=== PATIENT | female | born 1990 | race Caucasian/White ===

== ENCOUNTER → 2020-04-14 | Outpatient (CLI) | payer OTHER ==
--- NOTE | 2020-04-15 08:06 | USB ---
Reason for exam: clinical finding. History: Family history of breast cancer in maternal aunt. Indicated problem(s): lump or thickening in the left breast. Physical Findings: Nurse did not find any significant physical abnormalities on exam. US Breast LT Left complete breast ultrasound includes all four quadrants, the retroareolar region and axilla. Finding demonstrates no cystic or solid lesion seen. Attention to the 2 o'clock palpable site. Dense tissues are noted. These results were verbally communicated with the patient and result sheet given to the patient on 04/14/20. ASSESSMENT: Negative, BI-RAD 1 RECOMMENDATION: Routine screening mammogram of both breasts at age 42. (unless clinical indication to start sooner) Manage on a clinical basis with regard to any suspicious palpable area. The patient can be rescanned if any enlarging lump.
== END | disposition home or self-care (01) ==
LOC: RADUSWWP 15:06
PROVIDERS: ATTEND Family Medicine
DX: N63.20 Unspecified lump in the left breast, unspecified quadrant (principal)

== ENCOUNTER 2021-12-30 14:02 | Emergency (ER) | payer OTHER ==
[2021-12-30 14:08] VITALS: RESP 20; TEMP 98.4
[2021-12-30] MEDS ORDERED: KETOROLAC 15 MG/ML 1 ML VIAL IM STA (14:19)
--- NOTE | 2021-12-30 14:26 | ED ---
Lower Extremity Injury HPI - General Chief Complaint: Extremity Injury, Lower Stated Complaint: knee injury Time Seen by Provider: 12/30/21 14:12 Source: patient, RN notes reviewed Mode of arrival: ambulatory Limitations: no limitations - History of Present Illness Initial Comments: This is a 31-year-old female who presents to the emergency department for knee pain. Patient was playing softball last night, and as she went to catch the ball, she ended up running into a fence. Patient states that the pain is more severe in the left knee, however both knees are painful. She has been applying ice and taking Advil with very minor relief. States that walking is very difficult as is bending the left leg. Denies any fevers, chills, sore throat, cough, dyspnea, chest pain, palpitations, abdominal pain, nausea, vomiting, diarrhea, back pain, or headaches. MD Complaint: knee injury Onset/Timin -: days(s) Injury: Knee: Right, Left Type of Injury: blunt Place: street/outdoors Worsens With: weight bearing, movement Context: direct blow Treatments Prior to Arrival: cold therapy, NSAIDS - Related Data Previous Rx's Medication Instructions Recorded Ketorolac [Toradol] 10 mg PO Q6HR PRN #16 tab 12/30/21 Allergies Allergy/AdvReac Type Severity Reaction Status Date / Time No Known Allergies Allergy Verified 12/30/21 14:08 Review of Systems ROS Statement: Those systems with pertinent positive or pertinent negative responses have been documented in the HPI. ROS Other: All systems not noted in ROS Statement are negative. Past Medical History Past Medical History: No Reported History History of Any Multi-Drug Resistant Organisms: None Reported Past Surgical History: No Surgical Hx Reported Past Psychological History: No Psychological Hx Reported Smoking Status: Current every day smoker Past Alcohol Use History: Occasional Past Drug Use History: Marijuana General Exam Limitations: no limitations General appearance: alert, in no apparent distress Head exam: Present: atraumatic, normocephalic, normal inspection Respiratory exam: Present: normal lung sounds bilaterally. Absent: respiratory distress, wheezes, rales, rhonchi, stridor Cardiovascular Exam: Present: regular rate, normal rhythm, normal heart sounds. Absent: systolic murmur, diastolic murmur, rubs, gallop, clicks Extremities exam: Present: other (Ecchymosis, swelling, and tenderness to the left knee. Very limited active range of motion secondary to pain. Minor tenderness to the right knee with full active range of motion.) Neurological exam: Present: alert, oriented X3, CN II-XII intact Psychiatric exam: Present: normal affect, normal mood Skin exam: Present: warm, dry, intact, normal color. Absent: rash Course Vital Signs 12/30/21 12/30/21 14:05 15:57 Temperature 98.4 F Pulse Rate 93 74 Respiratory 20 20 Rate Blood Pressure 143/66 136/84 O2 Sat by Pulse 99 99 Oximetry Medical Decision Making - Medical Decision Making This is a 31-year-old female who presents to the emergency department with knee pain. X-rays of the bilateral knees were obtained, revealing no acute osseous abnormalities such as fractures or dislocations. Patient was given IM Toradol and states that this helped significantly with her pain. Prescription for Toradol was provided, she is instructed to avoid taking this with other mfms-kin-xcdhras anti-inflammatories and to alternate with Tylenol. She was also given crutches. Patient declined a knee immobilizer, advised to purchase an vrrj-rwf-yvwcqlg knee brace if she believes that it would be beneficial. She is also instructed to apply ice for 15-20 minutes every 2-3 hours to help with additional swelling and inflammation. She will follow up with her primary care provider next week to reevaluate her symptoms. Return precautions reviewed in depth, the patient is instructed to return to the emergency department with any new, worsening, or concerning symptoms. Patient verbalized understanding. This case was discussed in detail with the attending ED physician. Presentation, findings, and treatment plan discussed in detail as well. - Radiology Data Radiology results: report reviewed, image reviewed Disposition Clinical Impression: Contusion of knee, left, Contusion of knee, right Disposition: HOME SELF-CARE Instructions (If sedation given, give patient instructions): Knee Sprain (ED), Knee Pain (ED) Additional Instructions: Return to the emergency department with any new, worsening, or concerning symptoms. Take the Toradol with Tylenol for pain relief. Do not take vajj-qzt-hrpbcoa anti-inflammatories with the Toradol. Continue to apply ice for 15-20 minutes every 2-3 hours for additional pain relief. Use the crutches as needed and you may purchase an qqtm-qpo-kxphvyz knee brace for additional stability if you believe that it would be beneficial. Follow up with your primary care provider in 1-2 days. Prescriptions: Ketorolac [Toradol] 10 mg PO Q6HR PRN #16 tab PRN Reason: Pain Is patient prescribed a controlled substance at d/c from ED?: No Referrals: Martha Sorensen MD [STAFF PHYSICIAN] - 1-2 days
--- NOTE | 2021-12-30 15:09 | XR ---
EXAMINATION TYPE: XR knee complete bilateral DATE OF EXAM: 12/30/2021 COMPARISON: NONE HISTORY: Contusion Pain TECHNIQUE: 6 views FINDINGS: There is no fracture nor dislocation. Joint spaces are normal. No sign of knee joint effusi on. IMPRESSION: Negative bilateral knee exam.
[2021-12-30 15:59] VITALS: BP 136/84; PULSE 74
== END 2021-12-30 15:59 | disposition home or self-care (01) ==
LOC: EC 14:02
DX: S80.02XA Contusion of left knee, initial encounter (principal); S80.01XA Contusion of right knee, initial encounter; F17.200 Nicotine dependence, unspecified, uncomplicated; W21.07XA Struck by softball, initial encounter; Y93.02 Activity, running; Y92.410 Unspecified street and highway as the place of occurrence of the external cause
CPT/HCPCS: 73562; 99283; J1885

== ENCOUNTER 2022-11-12 15:07 | Inpatient (IN) | payer OTHER ==
[2022-11-12 15:43] LABS: Appearance,Urine Cloudy (Clear); Bacteria,Urine Rare /hpf; Bilirubin,Urine Negative (Negative); Blood,Urine Negative (Negative); Color,Urine Yellow; Glucose,Urine (UA) Negative (Negative); Ketones,Urine Negative (Negative); Leukocyte Esterase,Urine Small (Negative); Mucus,Urine Rare /hpf; Nitrite,Urine Negative (Negative); PH, Urine 5.5 (5.0-8.0); Protein,Urine Negative (Negative); RBC,Urine 2 /hpf (0-5); Specific Gravity,Urine 1.022 (1.001-1.035); Squamous Epithelial Cell,Urine 22 /hpf (0-4); Urobilinogen,Urine <2.0 mg/dL (<2.0); WBC,Urine 2 /hpf (0-5)
[2022-11-12 15:51] LABS: Basophils % (A) 0 %; Eosinophils # (A) 0.3 k/uL (0-0.7); Eosinophils % (A) 3 %; HCT 34.9 % (34.0-46.0); HGB 12.2 gm/dL (11.4-16.0); Lymphocytes # (A) 1.6 k/uL (1.0-4.8); Lymphocytes % (A) 13 %; MCH 30.5 pg (25.0-35.0); MCV 86.9 fL (80.0-100.0); Mean Platelet Volume 8.7; Monocytes # (A) 0.5 k/uL (0-1.0); Monocytes % (A) 4 %; Neutrophils # (A) 9.7 k/uL (1.3-7.7); Neutrophils % (A) 78 %; Platelet Count 246 k/uL (150-450); RBC 4.02 m/uL (3.80-5.40); RDW 13.4 % (11.5-15.5); WBC 12.4 k/uL (3.8-10.6)
[2022-11-12 16:17] LABS: ALT 19 U/L (4-34); AST 25 U/L (14-36); African American GFR (CKD) >90 (>60 ml/min/1.73 sqM); Blood Urea Nitrogen 11 mg/dL (7-17); LDH 192 U/L (120-246); Non-African American GFR(CKD) >90 (>60 ml/min/1.73 sqM); Uric Acid 5.5 mg/dL (3.7-7.4)
[2022-11-12 17:49] LABS: Creatinine,Urine Random 101.8 mg/dL; Protein/Creatinine Ratio,Urine 0.108
[2022-11-12] MEDS ORDERED: DINOPROSTONE 10 MG INSERT.ER VAGINAL ONE (19:24)
[2022-11-12 21:07] LABS: INR 0.9 (<1.2); Partial Thromboplastin Time 22.7 sec (22.0-30.0); Prothrombin Time 9.3 sec (9.0-12.0)
[2022-11-13] MEDS ORDERED: KETOROLAC 15 MG/ML 1 ML VIAL ONE (00:29)
[2022-11-13] MEDS ORDERED: OXYTOCIN 30 UNITS/500 ML NS BAG IV ONE (00:29)
[2022-11-13] MEDS ORDERED: ONDANSETRON 4 MG/2 ML VIAL ONE (00:29)
[2022-11-13] MEDS ORDERED: MORPHINE SULFATE (PF) 0.3 MG/0.3 ML SYR ONE (00:29)
[2022-11-13] MEDS: LACTATED RINGERS 1,000 ML IV SCH ×6 (02:12→19:37)
[2022-11-13] MEDS ORDERED: LIDOCAINE 0.5% (PF) 5 MG/ML (50 ML SDV) SQ PRN (04:59)
[2022-11-13] MEDS ORDERED: TRANEXAMIC 1,000 MG/100ML-NACL 1,000 MG in EMPTY BAG 1 BAG IV PRN (04:59)
[2022-11-13] MEDS ORDERED: miSOPROStoL 200 MCG TAB PO PRN (04:59)
[2022-11-13] MEDS ORDERED: OXYTOCIN 10 UNIT/ML 1 ML VIAL IM PRN (04:59)
[2022-11-13] MEDS ORDERED: CARBOPROST TROMETHAMINE 250 MCG/ML 1 ML AMP IM PRN (04:59)
[2022-11-13] MEDS ORDERED: TERBUTALINE 1 MG/ML VIAL SQ PRN (04:59)
[2022-11-13] MEDS ORDERED: METHYLERGONOVINE 0.2 MG/ML 1 ML AMP IM PRN (04:59)
[2022-11-13] MEDS ORDERED: OXYTOCIN 30 UNITS/500 ML NS 30 UNIT in SALINE 1 500ML.BAG IV SCH (05:00)
[2022-11-13] MEDS: NALBUPHINE 10 MG/ML (10 ML MDV) IV PRN ×2 (05:30→10:41)
[2022-11-13] MEDS ORDERED: ROPIVACAINE 5 MG/ML 20 ML AMPULE ONE (15:05)
[2022-11-13] MEDS ORDERED: SODIUM CHLORIDE 0.9% 100 ML BAG ONE (15:05)
[2022-11-13] MEDS ORDERED: fentaNYL (PF) 50 MCG/ML 5 ML AMP ONE (15:05)
[2022-11-13] MEDS ORDERED: diphenhydrAMINE 50 MG/ML 1 ML VIAL IVP STA (22:21)
[2022-11-14] MEDS ORDERED: TRANEXAMIC 1,000 MG/100ML-NACL 1,000 MG in EMPTY BAG 1 BAG IV PRN (00:06)
[2022-11-14] MEDS ORDERED: CITRIC ACID-SODIUM CITRATE 15 ML CUP PO ONE (00:06)
[2022-11-14] MEDS ORDERED: AZITHROMYCIN 500 MG in SODIUM CHLORIDE 0.9% 250 ML IVPB STA (00:24)
[2022-11-14] MEDS ORDERED: diphenhydrAMINE 25 MG CAP PO PRN (01:37)
[2022-11-14] MEDS ORDERED: diphenhydrAMINE 50 MG CAP PO PRN (01:37)
[2022-11-14] MEDS ORDERED: diphenhydrAMINE 50 MG/ML 1 ML VIAL IVP PRN ×2 (01:37)
[2022-11-14] MEDS ORDERED: METOCLOPRAMIDE 5 MG/ML 2 ML VIAL IVP PRN (01:37)
[2022-11-14] MEDS ORDERED: CALCIUM GLUCONATE 1 GM/10 ML VIAL IV PRN (01:37)
[2022-11-14] MEDS ORDERED: ONDANSETRON 4 MG/2 ML VIAL IVP PRN (01:37)
[2022-11-14] MEDS ORDERED: NALOXONE 0.4 MG/ML 1 ML VIAL IV PRN ×2 (01:37→06:42)
[2022-11-14] MEDS ORDERED: SIMETHICONE 80 MG CHEWABLE PO PRN (01:37)
[2022-11-14] MEDS ORDERED: ZOLPIDEM 5 MG TAB PO PRN (01:37)
--- NOTE | 2022-11-14 01:37 | P.OP ---
Date of Procedure: 11/14/22 Preoperative Diagnosis: 1. Term IUP at 38 weeks and 1 day 2. Pre-eclampsia with severe features 3. Cervical Swelling 4. Labor Dystocia 5. Maternal Request for Section Postoperative Diagnosis: 1. Term IUP at 38 weeks and 1 day 2. Pre-eclampsia with severe features 3. Cervical Swelling 4. Labor Dystocia 5. Maternal Request for Section 6. Occiput Posterior Presentation 7. Nuchal Cord x2 Procedure(s) Performed: Primary Lower Transverse Section Implants: None Anesthesia: epidural Surgeon: Alee Salamanca Electron Microscopist #1: Michael Ayala Estimated Blood Loss (ml): 850 IV fluids (ml): 600 Urine output (ml): 50 (clear yellow) Pathology: none sent Condition: stable Disposition: floor Indications for Procedure: Ms. Sadler is a 32 year old at 38 weeks and 1 day gestation who was admitted on 11/12 for medical induction of labor for gestational hypertension. Induction was started with cervidil cervical ripening. The following afternoon A ROM was undertaken for clear fluid and oxytocin per protocol was started. The patient received epidural anesthesia per her request. The patient had a Category II tracing with recurrent late decelerations that was improved with position changes, fluid bolus, and decreasing the oxytocin. The heart tracing was once again Category I. She progressed to 6-7 centimeters dilation and cervical swelling was noted at this time. After 2 to 3 hours at the same dilation, the patient was involuntarily pushing and not getting good relief from her epidural. She requested section at this time. The risks, benefits, and alternatives to section were discussed with the patient including risk of bleeding, infection, damage to surrounding structures including bladder/bowel/ureters, and post-operative VTE. The patient understands these risks and desires to proceed with primary section. Operative Findings: Viable male in occiput posterior presentation with nuchal cord x2. Apgars were 9 and 9 and 1 and 5 minutes respectively. Weight was 7 pounds and 0 ounces (3180 grams). Amniotic fluid was colorless at the time of delivery. The uterus, fallopian tubes, and bilateral ovaries were grossly unremarkable. Description of Procedure: The patient was taken to the operating room where spinal anesthesia was found to be adequate. Two grams of Ancef and five hundred milligrams of Azithromycin were given for infection prophylaxis. Vaginal prep was performed prior to the surgery. She was prepared and draped in the dorsal supine position with a leftward tilt. A Pfannenstiel skin incision was made with the scalpel. The incision was carried down to the fascia with a bovie. The fascia was incised and extended laterally with Edmonds scissors. The superior aspect of the fascia was grasped with Mily clamps. The underlying rectus muscle was dissected off bluntly. In a similar fashion, the inferior aspect of the fascia was elevated with Mily clamps and the rectus muscle and pyramidalis were dissected off. Excellent hemostasis was achieved with the bovie. The rectus muscle was in the midline down to the level of the pubic symphysis. Pre- peritoneal fatty tissue was bluntly dissected to expose the peritoneum. The peritoneum was found to be free of adherent bowel and entered sharply with Edmonds scissors. The peritoneal incision was extended superiorly and inferiorly to the bladder reflection with good visualization of the bladder. The bladder blade was inserted and vesicouterine peritoneum was identified. Intraabdominal survey revealed scant, clear peritoneal fluid and the thinned-out lower uterine segment. The bladder blade was repositioned to keep the bladder out of the operative field. The lower uterine segment was incised with a scalpel. Clear amniotic fluid was noted. The uterine incision was extended bluntly with lateral and upward traction. The fetus was in occiput posterior position. The head was elevated out of the pelvis with special attention paid to avoid using the uterine incision as a fulcrum. Two loose nuchal cords were reduced. Gentle fundal pressure was applied once the head was brought into the incision. The was delivered with no difficulty. The mouth and nose were suctioned with a bulb. The cord was clamped and cut. was noted to be spontaneously crying. The infant was handed off to the feather shaper. IV oxytocin was initiated to facilitate uterine contractions. The placenta was delivered intact with manual massage of uterine fundus. The uterus was then exteriorized and the inside of the uterus was gently wiped with a lap sponge to assure complete removal of placental membranes. A small left uterine incision was noted. The uterine incision was closed with a 0-Vicryl suture in a running locked fashion. A second imbricating layer of 0-Polysorb was placed along the incision. The ovaries and tubes were found to be normal. The uterus, tubes, and ovaries were then gently returned to the abdominal cavity. The blood clots and fluid were wiped out of the abdomen and pelvis with moist laparotomy sponges. The pelvis was copiously suction irrigated.The uterine incision was reinspected and excellent hemostasis was noted. The fascial layer was closed with a 0-Vicryl suture. The subcutaneous tissue was reapproximated with 2-0 Plain Gut. The skin was closed with 4-0 Monocryl in a subcuticular fashion. The patient tolerated the procedure well. All the counts were correct times two. The patient was taken to the recovery room in a stable condition.
[2022-11-14] MEDS ORDERED: MAGNESIUM SULFATE GM 6 GM in SODIUM CHLORIDE 0.9% 100 ML IVPB ONE (02:00)
[2022-11-14] MEDS: MAGNESIUM SULFATE-WATER PMX 20 GM in WATER FOR INJECTION 1 500ML.BAG IV SCH ×2 (02:36→11:01)
[2022-11-14] MEDS: KETOROLAC 15 MG/ML 1 ML VIAL IVP SCH ×4 (02:43→20:05)
[2022-11-14] MEDS: ACETAMINOPHEN TAB 500 MG TAB PO SCH ×5 (05:02→23:22)
[2022-11-14] MEDS ORDERED: HYDROmorphone 0.5 MG/0.5 ML SYRINGE IVP PRN (06:42)
[2022-11-14] MEDS: SENNOSIDES-DOCUSATE SODIUM 1 EACH TAB PO SCH ×2 (07:51→20:06)
--- NOTE | 2022-11-14 07:57 | P.HPOB ---
History of Present Illness H&P Date: 11/12/22 Chief Complaint: Elevated blood pressures in office This is a 32 year old at 37 weeks and 6 days with EDC of 11/27/2022 (by 6 week US not consistent with LMP) who was sent over from office with elevated blood pressures 140s/80s-90s. In triage, the patient had labile blood pressures up to 140s systolic. The patient denies headache, visual disturbances, and right upper quadrant pain. has otherwise been uncomplicated. A growth ultrasound at 32 weeks estimated the fetus to be in the 64%ile for gestational age. Maternal work-up: blood type O positive, antibody negative, rubella NON-IMMUNE, VDRL non-reactive, HBsAg negative, HIV negative, gonorrhea negative, chlamydia negative, 1 hour GTT 127, GBS negative. TDap declined. Past Medical History Past Medical History: No Reported History History of Any Multi-Drug Resistant Organisms: None Reported Past Surgical History: No Surgical Hx Reported Past Psychological History: No Psychological Hx Reported Smoking Status: Current every day smoker Past Alcohol Use History: Occasional Past Drug Use History: Marijuana Medications and Allergies Home Medications Medication Instructions Recorded Confirmed Type Vit No.179/Iron/Folic 1 each PO DAILY 11/12/22 11/12/22 History [ Tablet] Allergies Allergy/AdvReac Type Severity Reaction Status Date / Time No Known Allergies Allergy Verified 11/12/22 15:17 Exam Focused physical exam is performed. This is a healthy-appearing in no apparent distress. Breathing is non-labored. Abdomen is gravid and non-tender. Cervical exam is fingertip, 30% effaced, and -3 station. Extremities are non-tender and non-edematous. Results Result Diagrams: 11/12/22 15:36 11/12/22 15:36 Assessment and Plan Assessment: 32 year old at 37 weeks and 6 days with newly diagnosed gestational hypertension. Plan: 1. gHTN. Serial BPs. Asymptomatic. PIH labs normal, P:C 0.1. 2. mIOL. Cervidil overnight. IV Nubain prn for analgesia.
[2022-11-14 10:34] VITALS: RESP 16
[2022-11-14] MEDS: LACTATED RINGERS 1,000 ML IV SCH ×3 (10:44→23:27)
[2022-11-14] MEDS: IBUPROFEN 600 MG TAB PO SCH ×2 (14:11→20:28)
[2022-11-14] MEDS ORDERED: MEASLES-MUMPS-RUBELLA VACC/PF 12,500 UNIT/0.5 ML VIAL SQ ONE (17:30)
[2022-11-15] MEDS: IBUPROFEN 600 MG TAB PO SCH ×4 (02:13→21:06)
[2022-11-15] MEDS: KETOROLAC 15 MG/ML 1 ML VIAL IVP SCH ×4 (02:16→22:00)
[2022-11-15] MEDS: LACTATED RINGERS 1,000 ML IV SCH ×4 (04:56→22:00)
[2022-11-15] MEDS: ACETAMINOPHEN TAB 500 MG TAB PO SCH ×4 (05:34→22:45)
[2022-11-15 06:50] LABS: Basophils # (A) 0.1 k/uL (0-0.2); Basophils % (A) 0 %; Eosinophils # (A) 0.2 k/uL (0-0.7); Eosinophils % (A) 1 %; HCT 29.8 % (34.0-46.0); Lymphocytes # (A) 1.5 k/uL (1.0-4.8); Lymphocytes % (A) 10 %; MCH 29.9 pg (25.0-35.0); MCHC 33.3 g/dL (31.0-37.0); MCV 89.8 fL (80.0-100.0); Monocytes # (A) 0.5 k/uL (0-1.0); Monocytes % (A) 4 %; Neutrophils # (A) 12.3 k/uL (1.3-7.7); Neutrophils % (A) 84 %; Platelet Count 222 k/uL (150-450); RBC 3.32 m/uL (3.80-5.40); RDW 13.8 % (11.5-15.5); WBC 14.7 k/uL (3.8-10.6)
[2022-11-15 06:53] LABS: HGB 9.9 gm/dL (11.4-16.0)
--- NOTE | 2022-11-15 07:12 | P.PN ---
Progress Note - Text Date: 11/15/2022 Time: 06:55 The patient is status post section Vital signs stable VAS: 0-10 Patient has no complaints of pain. The patient incurred some minimal itching yesterday, this itching is now subsiding. Pain meds to be managed by service.
[2022-11-15] MEDS: SENNOSIDES-DOCUSATE SODIUM 1 EACH TAB PO SCH ×2 (07:59→21:06)
--- NOTE | 2022-11-15 08:54 | P.PNOBGPC ---
Subjective - Subjective Principal diagnosis: s/p primary section Interval history: The patient is doing well this morning and had no acute events overnight. She has no complaints this morning. She reports minimal lochia, passing flatus, voiding without difficulty, ambulating, and eating/drinking without nausea or vomiting. She is her without difficulty. She denies chest pain, shortness of breathing, fevers, or chills overnight. She denies pain or swelling in the legs. Patient reports: Reports appetite normal, Reports voiding normally, Reports pain well controlled Selby: doing well, nursing well Objective - Vital Signs Latest vital signs: Vital Signs Temp Pulse Resp BP Pulse Ox 11/15/22 04:00 97.9 F 81 16 128/67 98 11/14/22 23:19 96.5 F L 74 16 120/64 98 11/14/22 20:00 97.0 F L 80 16 135/75 99 11/14/22 19:00 82 16 131/76 100 11/14/22 18:01 78 16 114/65 96 11/14/22 17:12 77 16 115/60 99 11/14/22 16:03 81 16 123/70 99 11/14/22 14:59 97.0 F L 80 16 119/69 98 11/14/22 14:03 79 16 127/67 98 11/14/22 13:02 85 16 124/65 99 11/14/22 12:02 97.8 F 81 16 127/69 98 11/14/22 11:00 79 16 128/73 98 11/14/22 10:00 77 16 133/82 99 11/14/22 09:02 82 16 119/61 Intake and Output 11/14/22 11/15/22 11/15/22 22:59 06:59 14:59 Intake Total 824.167 Output Total 1700 800 Balance -875.833 -800 Intake: Intake, IV Titration 824.167 Amount Lactated Ringers 1,000 ml 375 @ 125 mls/hr IV .Q8H YEHUDA Rx#:[id number] Magnesium Sulfate-Water 449.167 Pmx 20 gm In Water For Injection 1 500ml.bag @ 2 GM/HR 50 mls/hr IV .Q10H YEHUDA Rx#:[id number] Output: Urine 1700 800 Other: # Voids 1 2 - Exam Extremities: Present: normal Abdomen: Present: normal appearance, soft Incision: Present: normal, dry, intact Uterus: Present: normal, firm - Labs Labs: Abnormal Lab Results - Last 24 Hours (Table) 11/15/22 Range/Units 06:21 WBC 14.7 H (3.8-10.6) k/uL RBC 3.32 L (3.80-5.40) m/uL Hgb 9.9 L D (11.4-16.0) gm/dL Hct 29.8 L (34.0-46.0) % Neutrophils # 12.3 H (1.3-7.7) k/uL Assessment and Plan Assessment: 32 year old now POD#1 s/p primary section 2/2 maternal request after labor dystocia Plan: 1. Postoperative. Patient meeting all postoperative milestones appropriately. 2. Pre-eclampsia with severe features. s/p Mag Sulfate. Patient has been normotensive since delivery. 3. Viable male . Doing well at bedside, s/p circumcision. Dispo: Anticipate discharge home tomorrow.
--- NOTE | 2022-11-15 20:52 | P.DS ---
Providers Date of admission: 11/12/22 18:55 Expected date of discharge: 11/15/22 Attending physician: Alee Salamanca MD Primary care physician: Alee Salamanca MD Hospital Course: This is a 32 year old who is post-operative day #1 s/p primary lower transverse section at 38 weeks and 1 day after maternal request. She was being induced for gestational hypertension. She dilated to 6-7 centimeters after starting pitocin and rupturing membranes which revealed clear fluid. At this point, the patient stopped making cervical change for approximately 2 hours and the cervix was noted to be swollen. The patient was not getting good relief from her epidural and requested section. The section was uncomplicated. Just prior to delivery and throughout the section the patient had sustained severe-range blood pressures and the diagnosis of pre- eclampsia with severe features was made. She was started on Magnesium sulfate. After delivery, her blood pressures have been normotensive. Today the patient is doing well and desires discharge home this evening at 48 hours post- operative. She is meeting all postoperative milestones appropriately. She is eating and drinking without nausea or vomiting. She is voiding spontaneously, ambulating without difficulty, and passing flatus. She is her male infant without difficulty. The infant is doing well and is now status post ci rcumcision. Lochia is moderate. Her incision is clean, dry, and intact. She denies fevers, chills, chest pain, shortness of breath, pain/swelling in the legs, headache, visual disturbances, or right upper quadrant pain. Postoperative restrictions are reviewed with the patient including no heavy lifting more than 15 pounds for 6 weeks and pelvic rest for 6 weeks. She is encouraged to call the office for fevers/chills, worsening pain, heavy bleeding, breast complaints, foul smelling vaginal discharge, or any other questions. She will follow up in the office in 1 week for blood pressure check. All questions answered. Assessment: 32 year old POD#1 s/p 1C/S secondary to maternal request after protracted induction of labor for gestational hypertension Patient Condition at Discharge: Good Plan - Discharge Summary Discharge Rx Participant: No New Discharge Prescriptions: New Ibuprofen [Motrin] 600 mg PO Q6HR PRN #30 tab PRN Reason: Mild Pain (Scale 1 To 3) oxyCODONE HCL [Roxicodone] 5 mg PO Q6HR PRN 3 Days #12 tab PRN Reason: Breakthrough Pain Acetaminophen Tab [Tylenol] 650 mg PO Q6H PRN #30 tab PRN Reason: Mild Pain (Scale 1 To 3) No Action Vit No.179/Iron/Folic [ Tablet] 1 each PO DAILY Discharge Medication List Vit No.179/Iron/Folic [ Tablet] 1 each PO DAILY 11/12/22 [History] Acetaminophen Tab [Tylenol] 650 mg PO Q6H PRN #30 tab 11/15/22 [Rx] Ibuprofen [Motrin] 600 mg PO Q6HR PRN #30 tab 11/15/22 [Rx] oxyCODONE HCL [Roxicodone] 5 mg PO Q6HR PRN 3 Days #12 tab 11/15/22 [Rx] Follow up Appointment(s)/Referral(s): Alee Salamanca MD [Primary Care Provider] - 1 Week (blood pressure check) Patient Instructions/Handouts: (DC), Caring for Your Baby (DC), Depression (DC), Bleeding (DC), How to Tell if Your Baby is Getting Enough Breast Milk (DC), How to Increase Your Milk Supply (DC) Activity/Diet/Wound Care/Special Instructions: Pelvic rest for 6 weeks with nothing in the vagina. No lifting heavier than 15 pounds for 6 weeks. Discharge Disposition: HOME SELF-CARE
[2022-11-16 03:42] VITALS: BP 129/76; PULSE 78; TEMP 98.1
== END 2022-11-15 22:45 | disposition home or self-care (01) | DRG 540 ==
LOC: FBPOP 15:07 → 4FBP 18:55
PROVIDERS: ADMIT Obstetrics & Gynecology; ATTEND Obstetrics & Gynecology
PROC: 10907ZC Drainage of Amniotic Fluid, Therapeutic from Products of Conception, Via Natural or Artificial Opening (ICD-10-PCS; 2022-11-13)
PROC: 3E033VJ Introduction of Other Hormone into Peripheral Vein, Percutaneous Approach (ICD-10-PCS; 2022-11-13)
PROC: 10D00Z1 Extraction of Products of Conception, Low, Open Approach (ICD-10-PCS; principal; 2022-11-14 00:29)
DX: O14.14 Severe pre-eclampsia complicating childbirth (principal); O69.81X0 Labor and delivery complicated by cord around neck, without compression, not applicable or unspecified; O76 Abnormality in fetal heart rate and rhythm complicating labor and delivery; O99.334 Smoking (tobacco) complicating childbirth; F17.200 Nicotine dependence, unspecified, uncomplicated; Z37.0 Single live birth; Z3A.38 38 weeks gestation of pregnancy; O66.9 Obstructed labor, unspecified
CPT/HCPCS: 59025; 81001; 82565; 82570; 83615; 84156; 84450; 84460; 84520; 84550; 85025; 85610; 85730; 86850; 86900; 86901; 90471; 90707; 99215